=== PATIENT | female | born 1970 | race Caucasian/White ===

== ENCOUNTER 2023-11-19 11:56 | Outpatient (CLI) | payer BC | END 2023-11-19 11:57 | disposition home or self-care (01) | LOC: SCSMRI 11:56 | PROVIDERS: ATTEND Orthopaedic Surgery | DX: M23.92 Unspecified internal derangement of left knee (principal); M25.462 Effusion, left knee; M22.2X2 Patellofemoral disorders, left knee; R60.0 Localized edema ==